=== PATIENT | male | born 1985 | race Caucasian/White ===

== ENCOUNTER 2019-01-05 10:49 | Day surgery (SDC) | payer BC, OTHER ==
--- NOTE | 2019-01-05 11:34 | Anesthesia Day of Surgery ---
Anesthesia Day of Surgery - Day of Surgery Patient Examined: Yes Patient H&P Reviewed: Yes Patient is NPO: Yes
[2019-01-05] MEDS ORDERED: ZOFRAN IV PRN (11:35)
[2019-01-05] MEDS ORDERED: DILAUDID IV PRN (11:35)
[2019-01-05] MEDS ORDERED: SUBLIMAZE IV PRN (11:35)
--- NOTE | 2019-01-05 11:35 | Anesthesia Consultation ---
Anesthesia Consult and Med Hx Date of service: 01/05/19 - Airway Anesthetic Teeth Evaluation: Chipped ROM Head & Neck: Adequate Mental/Hyoid Distance: Adequate Mallampati Class: Class II Intubation Access Assessment: Probably Good - Pre-Operative Health Status ASA Pre-Surgery Classification: ASA1 Proposed Anesthetic Plan: General - Pulmonary Hx Smoking: No Hx Sleep Apnea: No (HUGH PRE SCREEN LOW RISK) - Cardiovascular System Hx Hypertension: No - Other Systems Hx Cancer: No
[2019-01-05] MEDS ORDERED: LACTATED RINGERS 1,000 ML IV SCH (12:00)
[2019-01-05] MEDS ORDERED: VERSED IV ONE (13:44)
[2019-01-05] MEDS ORDERED: ANCEF/STERILE WATER 2 GM/20 ML IV NR (14:09)
[2019-01-05] MEDS ORDERED: SUBLIMAZE ONE ×2 (14:22→15:08)
[2019-01-05] MEDS ORDERED: DIPRIVAN 10 MG/ML IV ONE (14:22)
[2019-01-05] MEDS ORDERED: XYLOCAINE MPF 2% ONE (14:26)
[2019-01-05] MEDS ORDERED: ZOFRAN ONE (14:56)
[2019-01-05] MEDS ORDERED: DECADRON ONE (14:56)
[2019-01-05] MEDS ORDERED: ZEMURON IV ONE (15:17)
--- NOTE | 2019-01-05 15:27 | Short Stay Summary ---
Short Stay Documentation Date of service: 01/05/19 - History H&P: obtained from office - Allergies and Medications Current Medications: Allergies No Known Allergies Allergy (Verified 12/28/18 14:51) Home Medications Medication Instructions Recorded Confirmed Last Taken Type No Known Home Medications [No 12/28/18 12/28/18 Unknown History Reported Home Medications] Active Medications Cefazolin Sodium (Ancef/Sterile Water 2 Gm/20 Ml) 2 gm IV PREOP NR Stop: 01/06/19 14:08 Fentanyl (Sublimaze) 50 mcg IV Q5MIN PRN PRN Reason: Pain , Severe (7-10) Stop: 01/05/19 23:59 Hydromorphone HCl (Dilaudid) 0.5 mg IV Q10MIN PRN PRN Reason: Pain , Severe (7-10) Stop: 01/05/19 23:59 Lactated Ringer's (Lactated Ringers) 1,000 mls @ 125 mls/hr IV DIRECT CLARISA Last Admin: 01/05/19 12:45 Dose: 125 mls/hr Documented by: Ondansetron HCl (Zofran) 4 mg IV ONCE PRN PRN Reason: Nausea And Vomiting - Brief post op/procedure progress note Date of procedure: 01/05/19 Pre-op diagnosis: Bladder stone Post-op diagnosis: same Procedure: cyto rpg cystolitholapaxy Anesthesia: GETA Findings: bladder stone Surgeon: SHWETA LEE Pathology: list (bladder stone chem analysis) Specimen disposition: to lab Condition: stable - Hospital course Hospital course: orpacuhome - Disposition Condition at discharge: Good Disposition: DC-01 TO HOME OR SELFCARE Short Stay Discharge Plan Activity: advance as tolerated Diet: advance as tolerated Follow up with: SHWETA LEE MD [Staff Physician] - 7 Days
[2019-01-05] MEDS ORDERED: WATER FOR IRRIG STERILE IR ONE ×2 (15:46)
[2019-01-05 15:48] VITALS: BP 136/92
[2019-01-05] MEDS ORDERED: NORCO 5/325 PO PRN (16:17)
--- NOTE | 2019-01-07 10:07 | Fluoroscopy Report ---
FLUOROSCOPY RETROGRADE UROGRAPHY: HISTORY: Bladder stone. FINDINGS: Fluoroscopy was provided by radiology during retrograde urography by the urologist. 8 fluoroscopic images were captured. There is adequate filling of the ureters and intrarenal collecting systems with no filling defects or anatomic abnormalities identified. Per the procedural note, a bladder stone was visualized. A holmium laser and lithotripsy was utilized to break up the stone and remove the stone. Please correlate with the procedural report if needed. IMPRESSION: Retrograde pyelograms within normal limits. Bladder stone. See above.
--- NOTE | 2019-01-08 09:22 | Operative Report ---
Operative Report Operative Report: Dictated [id number]
--- NOTE | 2019-01-14 06:57 | Operative Report ---
PREOPERATIVE DIAGNOSIS: Bladder stone. POSTOPERATIVE DIAGNOSIS: Bladder stone. PROCEDURE: Cystolitholapaxy. SURGEON: Julian Yao MD ANESTHESIA: General. SPECIMENS: Stone. ESTIMATED BLOOD LOSS: Minimal. COMPLICATIONS: None. CLINICAL INDICATIONS: Counseled RCBA, antibiotics, SCD. DESCRIPTION OF PROCEDURE: Transferred to OR suite in dorsal lithotomy, anesthesia, prepped and draped. The 22-Cypriot scope passed, normal penile, bulbar prostatic urethra. Upon entering bladder, pancystoscopy 30 and 70 lens, no tumors, lesions, or other abnormality. There was a bladder stone approximately 1.5 cm. Holmium laser passed. This was passed, fragmented into smaller pieces. Pieces were then flushed out. Bilateral RPG with 8-Cypriot cone-tipped catheter, normal left distal ureter, proximal ureter, renal pelvis calyces. Repeated on the right side with similar normal findings. The patient was awakened and transferred to PACU in good and stable condition. JOB# [id number] ATS/NTS
== END 2019-01-05 17:52 | disposition home or self-care (01) ==
LOC: OR 10:49 → EDSEX 13:00
PROVIDERS: ATTEND Urology
DX: N21.0 Calculus in bladder (principal); Z79.899 Other long term (current) drug therapy
CPT/HCPCS: 36415; 52317; 74420; 82365; A4217; J0690; J1100; J2250; J2405; J2704; J3010; J7120; Q9967